=== PATIENT | male | born 1970 | race Caucasian/White ===

== ENCOUNTER 2016-09-17 08:59 | Emergency (ER) | payer MEDICAID, OTHER ==
[2016-09-17] MEDS ORDERED: KETOROLAC TROMETHAMINE 30 MG/ML SOL IV ONE (09:13)
[2016-09-17] MEDS ORDERED: METOCLOPRAMIDE HYDROCHLORIDE 5 MG/ML SOL IV ONE (09:13)
[2016-09-17] MEDS ORDERED: KETOROLAC TROMETHAMINE 30 MG/ML SOL ONE (09:16)
[2016-09-17] MEDS ORDERED: METOCLOPRAMIDE HYDROCHLORIDE 5 MG/ML SOL ONE (09:16)
[2016-09-17] MEDS ORDERED: SODIUM CHLORIDE 0.9% 1000ML 1,000 ML IV ONE (09:23)
[2016-09-17] MEDS: SODIUM CHLORIDE 0.9% FLUSH 10 ML SOL IV PRN ×2 (09:28→09:58)
[2016-09-17] MEDS ORDERED: DIPHENHYDRAMINE 50 MG/ML SOL IV ONE (09:32)
[2016-09-17] MEDS ORDERED: LORAZEPAM 2 MG/ML SOL IV ONE (09:32)
[2016-09-17 09:34] LABS: BASOPHILS % (AUTO) 1 % (0-3); EOSINOPHILS % (AUTO) 0 % (0-9); HEMATOCRIT 40 % (39-53); MEAN CORPUSCULAR HGB CONC 34.8 gm/dl (32.0-36.0); MEAN CORPUSCULAR VOLUME 86 fL (80-100); MONOCYTES % (AUTO) 6.7 % (0-12); NEUTROPHILS % (AUTO) 72.7 % (37-80)
[2016-09-17] MEDS ORDERED: DIPHENHYDRAMINE 50 MG/ML SOL ONE (09:35)
[2016-09-17] MEDS ORDERED: LORAZEPAM 2 MG/ML SOL ONE (09:36)
[2016-09-17 10:07] VITALS: TEMP 97.5
[2016-09-17 10:10] VITALS: BP 126/85; PULSE 81; RESP 16; O2SAT 93
[2016-09-17] MEDS ORDERED: ACETAMINOPHEN 500 MG 500 MG TAB PO ONE (11:07)
[2016-09-17] MEDS ORDERED: SUMATRIPTAN SUCCINATE 6 MG/0.5 ML SOL SC ONE ×2 (11:07→11:13)
[2016-09-17] MEDS ORDERED: ACETAMINOPHEN 500 MG 500 MG TAB ONE (11:13)
== END 2016-09-17 13:00 | disposition home or self-care (01) | DRG 103 ==
LOC: SUPCPDRO 08:59 → ED 08:59
DX: G43.009 Migraine without aura, not intractable, without status migrainosus (principal)
CPT/HCPCS: 85025; 96365; 96372; 96374; 96375; 99283; 99285; J1200; J1885; J2060; J2765; J3030